=== PATIENT | male | born 1995 | race Caucasian/White ===

== ENCOUNTER 2017-04-07 03:39 | Emergency (ER) | payer MEDICAID, OTHER ==
[2017-04-07 03:45] VITALS: PULSE 50; TEMP 97.7
--- NOTE | 2017-04-07 03:50 | EDPHY ---
H & P Stated Complaint: Sent from [facility], depression and anxiety HPI/ROS: HPI CHIEF COMPLAINT: Depression, anxiety HISTORY OF PRESENT ILLNESS: This patient very pleasant 22-year-old male who presents emergency room by private vehicle for worsening depression, very vague thoughts of SI, and additionally anxious. He additionally reports that he is newly homeless as of tonight. Patient was seen at [facility] and had an evaluation and sent here to by private vehicle to the emergency room for blood draw medical clearance. They plan on placing this patient in a CSU. Patient denies wanting to hurt himself or anybody else. Upon arrival to the emergency room he is calm and cooperative. Patient reports to me he has not been on any medications in 4 years. Past Medical History: Significant past medical history for bipolar disorder, schizoaffective disorder. Past Surgical History: Denies any significant surgery Social History: Denies drugs, occasional marijuana, denies alcohol. Family History: Noncontributory ROS REVIEW OF SYSTEMS: A comprehensive 10 point review of systems is otherwise negative aside from elements mentioned in the history of present illness. Exam Constitutional appears well nontoxic triage nursing summary reviewed, vital signs reviewed, awake/alert. Eyes normal conjunctivae and sclera, EOMI, PERRLA. HENT normal inspection, atraumatic, moist mucus membranes, no epistaxis, neck supple/ no meningismus, no raccoon eyes. Respiratory clear to auscultation bilaterally, normal breath sounds, no respiratory distress, no wheezing. Cardiovascular rate normal, regular rhythm, no murmur, no edema, distal pulses normal. Gastrointestinal soft, non-tender, no rebound, no guarding, normal bowel sounds, no distension, no pulsatile mass. Genitourinary no CVA tenderness. Musculoskeletal no midline vertebral tenderness, full range of motion, no calf swelling, no tenderness of extremities, no meningismus, good pulses, neurovascularly intact. Skin pink, warm, & dry, no rash, skin atraumatic. Neurologic awake, alert and oriented x 3, AAOx3, moves all 4 extremities equally, motor intact, sensory intact, CN II-XII intact, normal cerebellar, normal vision, normal speech. Psychiatric somewhat flat affect otherwise Heme/Lymph/Immune no lymphadenopathy. Differential Diagnosis: Includes but is not limited to in a particular order mood disorder, bipolar disorder, schizoaffective disorder, medication noncompliance Medical Decision Making: Plan for this patient blood draw for medical clearance. Will touch base with [facility]. Plan is for placement and a CSU. Re-evaluation: 0430AM: Patient medically cleared. Plan is to send patient back to [facility]. I did touch base with the nurse at [facility] CSU where the patient may go to. We discussed that this patient is medically cleared. I did ask him why they wanted to CT scan. They requested a CT scan comes they think this is the 1st time psychosis however patient reports to me he has a history of schizoaffective disorder bipolar disorder. The patient has a normal neurological exam here in the emergency room I do not feel that he would benefit from a CT scan affected think the risk of radiation and significant CT scan to his brain outweighs the benefit of proving that he has normal brain tissue. At this point I do feel comfortable medically clearing him and allow him go back to [facility]. [id number]: I re-evaluate the patient and patient be discharged back to [facility]. Source: Patient - Personal History Current Tetanus Diphtheria and Acellular Pertussis (TDAP): Yes - Medical/Surgical History Hx Asthma: No Hx Chronic Respiratory Disease: No Hx Diabetes: No Hx Cardiac Disease: No Hx Renal Disease: No Hx Cirrhosis: No Hx Alcoholism: No Hx HIV/AIDS: No Hx Splenectomy or Spleen Trauma: No Other PMH: Bipolar, ADHD - Social History Smoking Status: Never smoked Constitutional: Initial Vital Signs Temperature (C) 36.5 C 04/07/17 03:41 Heart Rate 50 L 04/07/17 03:41 Respiratory Rate 18 04/07/17 03:41 Blood Pressure 94/65 L 04/07/17 03:41 O2 Sat (%) 99 04/07/17 03:41 O2 Delivery Mode Room Air Allergies/Adverse Reactions: No Known Allergies Allergy (Unverified 04/07/17 03:41) Medical Decision Making - Data Points Laboratory Results: Laboratory Results 04/07/17 04:00 04/07/17 04:00 04/07/17 04/07/17 04/07/17 04:00 04:00 04:00 WBC 11.46 10^3/uL H 10^3/uL (3.80-9.50) RBC 5.65 10^6/uL 10^6/uL (4.40-6.38) Hgb 17.4 g/dL g/dL (13.7-17.5) Hct 49.8 % % (40.0-51.0) MCV 88.1 fL fL (81.5-99.8) MCH 30.8 pg pg (27.9-34.1) MCHC 34.9 g/dL g/dL (32.4-36.7) RDW 13.4 % % (11.5-15.2) Plt Count 287 10^3/uL 10^3/uL (150-400) MPV 9.5 fL fL (8.7-11.7) Neut % (Auto) 58.0 % % (39.3-74.2) Lymph % (Auto) 28.6 % % (15.0-45.0) [place] % (Auto) 11.1 % % (4.5-13.0) Eos % (Auto) 1.2 % % (0.6-7.6) Baso % (Auto) 0.8 % % (0.3-1.7) Nucleat RBC Rel Count 0.0 % % (0.0-0.2) Absolute Neuts (auto) 6.64 10^3/uL H 10^3/uL (1.70-6.50) Absolute Lymphs (auto) 3.28 10^3/uL H 10^3/uL (1.00-3.00) Absolute Monos (auto) 1.27 10^3/uL H 10^3/uL (0.30-0.80) Absolute Eos (auto) 0.14 10^3/uL 10^3/uL (0.03-0.40) Absolute Basos (auto) 0.09 10^3/uL 10^3/uL (0.02-0.10) Absolute Nucleated RBC 0.00 10^3/uL 10^3/uL (0-0.01) Immature Gran % 0.3 % % (0.0-1.1) Immature Gran # 0.04 10^3/uL 10^3/uL (0.00-0.10) Sodium 143 mEq/L mEq/L (135-145) Potassium 4.0 mEq/L mEq/L (3.5-5.2) Chloride 100 mEq/L mEq/L (97-110) Carbon Dioxide 27 mEq/l mEq/l (22-31) Anion Gap 16 mEq/L mEq/L (8-16) BUN 15 mg/dL mg/dL (7-23) Creatinine 0.9 mg/dL mg/dL (0.7-1.3) Estimated GFR > 60 Glucose 112 mg/dL H mg/dL (70-100) Calcium 10.3 mg/dL mg/dL (8.5-10.4) Urine Opiates Screen NEGATIVE (NEGATIVE) Urine Barbiturates NEGATIVE (NEGATIVE) Ur Phencyclidine Scrn NEGATIVE (NEGATIVE) Ur Amphetamine Screen NEGATIVE (NEGATIVE) U Benzodiazepines Scrn NEGATIVE (NEGATIVE) Urine Cocaine Screen NEGATIVE (NEGATIVE) U Marijuana (THC) Screen NEGATIVE (NEGATIVE) Ethyl Alcohol < 10 mg/dL mg/dL (0-10) Departure - Departure Clinical Impression: Bipolar disorder Qualifiers: Active/Remission status: currently active Current bipolar episode type: depressed Current episode severity: mild Qualified Code(s): F31.31 - Bipolar disorder, current episode depressed, mild Condition: Fair Instructions: Bipolar Disorder (ED)
[2017-04-07 04:13] LABS: PLATELET COUNT 287 10^3/uL (150-400)
[2017-04-07 13:29] VITALS: BP 122/77; RESP 16; O2SAT 98
== END 2017-04-07 13:33 ==
DX: F31.31 Bipolar disorder, current episode depressed, mild (principal)
CPT/HCPCS: 80305; G0480